=== PATIENT | female | born 1955 | race Caucasian/White ===

== ENCOUNTER 2023-05-22 12:36 | Outpatient (AMB) | payer OTHER, SELFPAY ==
--- NOTE | 2023-05-22 12:40 | A.OFFVIS_ITS ---
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 States pain started about 4.5 yrs ago. No injury or fall she can recall. At times she has radiating sharp pain down her legs. States she has tried P.T with no help. Pain increases with prolong walking and when waking up in the mornings. Denies past injection. Bag Valver Required: Yes Allergies No Known Allergies Allergy (Verified 05/22/23 12:44) Medication List - Last Reconciled 05/22/23 by Anahi Martinez MD [email or web address] (Jardiance) 25 mg PO DAILY glipizide 10 mg PO BID levothyroxine 88 mcg PO DAILY metformin 1,000 mg PO BID HPI HPI Comments History of Present Illness Details Says back and foot pain as separate issues. Back pain is at least 4 years or perhaps more. Lower back pain, shoots down to right leg. When she lays on right, she feels the pain on left hip/back. Denies numbness. But 3 months ago, reports spasms on both calves and perdomo. Admit groin pain, especially when walking. Denies foot drop or weakness. Denies bladder/bowel changes. 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 Patient was appropriately conversant and oriented. Good historian. MSK: No specific abnormalities found on inspection of the spine and all extremities. No pain with palpation over the lumbar paraspinals, facets are spinous proce sses. Tender bilateral SI joints in GT, left worse than right. Lumbar ROM was full. Bilateral hip, knee and ankle ROM WNL. No ligamentous laxity or crepitance. No increased effusion. Straight-leg raising test negative. FABERE test positive bilateral groin pain. Strength is 5/5 in all muscle groups tested. No increased tone noted. Neurological: Neurologic examination of the upper and lower extremities was nonfocal with intact sensation, muscle stretch reflexes and without focal motor deficits . Gaston?s negative bilaterally. Babinski was down going bilaterally. Clonus was negative. Gait is non-antalgic without loss of balance. Results Reviewed Results Reviewed: I reviewed records from the following: Notes from [facility] reviewed. Lumbar x-ray report extensive degenerative changes/facet. Ankle x-ray right reported heel spurs. Assessment & Plan Assessment & Plan (1) Hip pain, bilateral: Code(s): M25.551 - Pain in right hip; M25.552 - Pain in left hip (2) Sacroiliac joint dysfunction of both sides: Code(s): M53.3 - Sacrococcygeal disorders, not elsewhere classified Plan Based on exam and symptoms, suspect pain is primarily coming from hip joints, secondarily from SI joint. No signs of lumbar radiculitis or myelopathy seen on exam. Will send for hip x-rays today, rule out OA. Patient adamant against any injections. She is willing to go to physical therapy, referral placed. Assessment and plan discussed with patient, and patient was agreeable. All questions were answered thoroughly. Follow-up in 4-6 weeks, after PT ideally. Anahi Martinez MD, [place] Board Certified, [place] [employer] and [employer] (ABPMR) Board Certified, [place] [employer] Electro[employer] (ABEM) Orders: Orders PT Evaluation and Treatment Today M25.551 - Pain in right hip, M25.552 - Pain in left hip, M53.3 - Sacrococcygeal disorders, not elsewhere classified XR hips GISELLE min 3V Today M16.0 - Bilateral primary osteoarthritis of hip, M25.551 - Pain in right hip, M25.552 - Pain in left hip, M53.3 - Sacrococcygeal disorders, not elsewhere classified Coding Level of Care Code New Pt Level 4 (88625) Diagnoses Hip pain, bilateral M25.551; M25.552 Sacroiliac joint dysfunction of both sides M53.3
[2023-05-22 12:44] VITALS: BMI 26.2
== END 2023-05-22 13:15 | disposition home or self-care (01) ==
PROVIDERS: PCP Physician Assistant Medical; Visit Provider Physical Medicine & Rehabilitation
DX: M25.551 Pain in right hip (principal); M25.552 Pain in left hip; M53.3 Sacrococcygeal disorders, not elsewhere classified
CPT/HCPCS: 99204

== ENCOUNTER 2023-05-22 12:36 | Outpatient (REF) | payer OTHER, SELFPAY ==
--- NOTE | ~2023-05-22 | XR_ITS ---
EXAMINATION: XR BILATERAL HIPS WITH AP PELVIS CLINICAL INFORMATION: Bilateral hip primary osteoarthritis. COMPARISON: None available. TECHNIQUE: AP view of the pelvis and AP and frog lateral views of each hip were obtained. FINDINGS: Bony alignment and mineralization are normal. The right acetabular joint space is well-maintained. There is mild subchondral sclerosis and peripheral osteophyte formation of the right acetabular roof. There is moderate degenerative change of the left hip, with joint space narrowing, peripheral osteophyte formation and subchondral sclerosis. The femoral heads are smooth. There is no fracture or dislocation. The sacroiliac joints are symmetric and well-maintained. The pubic symphysis is intact. There is no foreign body. XR/XR hips GISELLE min 3V IMPRESSION: There is mild osteoarthritic change of the right hip, and moderate osteoarthritic change is seen of the left hip. No fracture or dislocation is seen bilaterally.
== END 2023-05-22 12:37 | disposition home or self-care (01) ==
LOC: HO.HOSX 12:36
PROVIDERS: PCP Physician Assistant Medical; Visit Provider Physical Medicine & Rehabilitation
DX: M16.0 Bilateral primary osteoarthritis of hip (principal); M53.3 Sacrococcygeal disorders, not elsewhere classified
CPT/HCPCS: 73522

== ENCOUNTER 2023-06-26 12:10 | Outpatient (AMB) | payer OTHER, SELFPAY ==
--- NOTE | 2023-06-26 12:11 | A.OFFVIS_ITS ---
Intake Intake Visit Reasons: OV- Chronic Low Back Pain Intake Note: Milvia 67 yr old female presents today for her follow up visit for her right hip pain and Sacroiliac joint pain s/p P.T. Patient states she hasn't gone to PT due to not finding any use for it. She states that her pain is uncomfortable but she thinks that PT wont help it. Patient is also having concerns of her right foot pain. 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 Back pain is at least 4 years or perhaps more. Lower back pain, shoots down to right leg. When she lays on right, she feels the pain on left hip/back. Denies numbness. But 3 months ago, reports spasms on both calves and perdomo. Admit groin pain, especially when walking. Denies foot drop or weakness. Denies bladder/bowel changes. Treatment done so far: Tylenol therapy - last 4 years Patient says she is feeling better since last seen. Denies back pain, denies groin pain, only mild lateral hip pain. She has not gone to physical therapy. She does not like injections. 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 Patient was appropriately conversant and oriented. Good historian. MSK: No specific abnormalities found on inspection of the spine and all extremities. No pain with palpation over the lumbar paraspinals, facets are spinous processes. SI joints are not tender today. GT slightly tender right worse than left. Lumbar ROM was full. Bilateral hip, knee and ankle ROM WNL. No ligamentous laxity or crepitance. No increased effusion. Straight-leg raising test negative. FABERE test negative. Strength is 5/5 in all muscle groups tested. No increased tone noted. Neurological: Neurologic examination of the upper and lower extremities was nonfocal with intact sensation, muscle stretch reflexes and without focal motor deficits . Gaston?s negative bilaterally. Gait is non-antalgic without loss of balance. Results Reviewed Results Reviewed: Notes from [facility] reviewed. Lumbar x-ray report extensive degenerative changes/facet. Ankle x-ray right reported heel spurs. Ordering Physician: Anahi Newton Date of Service: 05/22/23 Procedure(s): XR hips GISELLE min 3V Accession Number(s): [id number] cc: [place] Larry PA-C; Anahi Newton~ EXAMINATION: XR BILATERAL HIPS WITH AP PELVIS CLINICAL INFORMATION: Bilateral hip primary osteoarthritis. COMPARISON: None available. TECHNIQUE: AP view of the pelvis and AP and frog lateral views of each hip were obtained. FINDINGS: Bony alignment and mineralization are normal. The right acetabular joint space is well-maintained. There is mild subchondral sclerosis and peripheral osteophyte formation of the right acetabular roof. There is moderate degenerative change of the left hip, with joint space narrowing, peripheral osteophyte formation and subchondral sclerosis. The femoral heads are smooth. There is no fracture or dislocation. The sacroiliac joints are symmetric and well-maintained. The pubic symphysis is intact. There is no foreign body. XR/XR hips GISELLE min 3V IMPRESSION: There is mild osteoarthritic change of the right hip, and moderate osteoarthritic change is seen of the left hip. No fracture or dislocation is seen bilaterally. Assessment & Plan Assessment & Plan (1) Degenerative joint disease of both hips: Code(s): M16.0 - Bilateral primary osteoarthritis of hip Qualifiers: Osteoarthritis type: primary Qualified Code(s): M16.0 - Bilateral primary osteoarthritis of hip Plan X-rays have shown hip DJD but patient denies any groin pain. Her exam overall is improved from last visit. She says that she is doing much better. She has not gone to physical therapy yet and I offered to refer her again. She declines as she is feeling better. She does not want any injections. Assessment and plan discussed with patient, and patient was agreeable. All questions were answered thoroughly. May follow up in 3-6 months as needed. Anahi Martinez MD, [place] Board Certified, [place] [employer] and [employer] (ABPMR) Board Certified, [place] [employer] (ABEM) Coding Level of Care Code Est Pt Level 3 (08455) Diagnoses Primary osteoarthritis of both hips M16.0 Osteoarthritis type: primary
== END 2023-06-26 12:44 | disposition home or self-care (01) ==
PROVIDERS: PCP Physician Assistant Medical; Visit Provider Physical Medicine & Rehabilitation
DX: M16.0 Bilateral primary osteoarthritis of hip (principal)
CPT/HCPCS: 99213

== ENCOUNTER → 2023-06-26 12:10 | Outpatient (BNVA) | payer OTHER, SELFPAY | PROVIDERS: PCP Physician Assistant Medical; Visit Provider Physical Medicine & Rehabilitation ==